=== PATIENT | male | born 1935 | race Caucasian/White ===

== ENCOUNTER 2019-03-06 11:29 | Emergency (ER) | payer MEDICARE ==
[~2019-03-06] VITALS: Ht 190.5 cm; Wt 85.3 kg
[~2019-03-06 11:29] MED LIST: CEPH500C PO; CPR500T PO; HYDR-3583 PO; HYDR-91 PO; PHEN200T27 PO
--- NOTE | 2019-03-06 11:55 | ED Neurological Problem ---
General Stated Complaint: DIZZY, SOB Source: patient, family Exam Limitations: other (patient's dementia) History of Present Illness Date Seen by Provider: Mar 06, 2019 Time Seen by Provider: 11:51 Initial Comments This 83-year-old white male presents with history of having episodes of being dizzy and lightheaded for the last several months. Episodes last about 30 minutes. Patient has no chest pain, palpitations, other neurologic symptoms, fever or chills, or precipitating etiology. The patient's states that the patient has been generally weak. The patient who suffers from dementia is unable to offer any truly helpful history. The patient's states that the episode today occurred as they were leaving [place]. It is now lasted for approximately 2 hours and this length of time has precipitated her presentation to the emergency department. The patient has had significant cardiac history with interventions including bypass surgery 5 years ago and a pacemaker. 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. Allergies and Home Medications Allergies Coded Allergies: No Known Drug Allergies (Unverified , 03/06/19) Home Medications Ciprofloxacin 500 Mg Tablet, 1 TAB PO BID, (Reported) Hydrocodone Bit/Acetaminophen 1 Each Tablet, 1-2 EA PO Q4HR PRN, (Reported) Phenazopyridine Hcl 200 Mg Tablet, 1 EACH PO TID PRN, (Reported) Patient Home Medication List Home Medication List Reviewed: Yes Review of Systems Review of Systems Constitutional: No chills, No fever Eyes: Denies Blurred Vision Ears, Nose, Mouth, Throat: denies ear discharge Respiratory: see HPI, short of breath Cardiovascular: see HPI; No chest pain Gastrointestinal: No abdominal pain, No nausea, No vomiting Genitourinary: No dysuria Musculoskeletal: No back pain Skin: No rash Psychiatric/Neurological: See HPI, Cognitive Dysfunction Endocrine: No Symptoms Reported Hematologic/Lymphatic: No Symptoms Reported Past Nyyxhah-Teiogv-Addfgm Hx Past Med/Social Hx: Reviewed Nursing Past Med/Soc Hx Immunizations Up To Date Date of Pneumonia Vaccine: Jul 31, 2009 Date of Influenza Vaccine: Aug 30, 2012 Past Medical History Reproductive Disorders: No Physical Exam Vital Signs Vital Signs - First Documented 03/06/19 11:33 Temp 96.0 Pulse 67 Resp 19 B/P (MAP) 167/84 (111) Pulse Ox 95 Capillary Refill : Height, Weight, BMI Height: '" Weight: lbs. oz. kg; BMI Method: General Appearance: WD/WN, no apparent distress HEENT: normal ENT inspection Neck: full range of motion, supple Respiratory: lungs clear, normal breath sounds Cardiovascular: regular rate, rhythm; No no murmur Gastrointestinal: normal bowel sounds, non tender, soft Back: normal inspection, no CVA tenderness Extremities: normal range of motion, non-tender, normal inspection Neurologic/Psychiatric: no motor/sensory deficits, alert; No facial droop Crainal Nerves: normal hearing, normal speech, PERRL, other (patient suffers from dementia and is unable offer helpful history.) Motor/Sensory: no motor deficit, no sensory deficit Skin: normal color, warm/dry Progress/Results/Core Measures Results/Orders Lab Results Laboratory Tests Test 03/06/19 12:14 03/06/19 12:37 Range/Units Glucometer 97 70-110 MG/DL White Blood Count 8.5 4.3-11.0 10^3/uL Red Blood Count 4.47 4.35-5.85 10^6/uL Hemoglobin 13.6 13.3-17.7 G/DL Hematocrit 41 40-54 % Mean Corpuscular Volume 92 80-99 FL Mean Corpuscular Hemoglobin 30 25-34 PG Mean Corpuscular Hemoglobin Concent 33 32-36 G/DL Red Cell Distribution Width 13.5 10.0-14.5 % Platelet Count 200 130-400 10^3/uL Mean Platelet Volume 9.6 7.4-10.4 FL Neutrophils (%) (Auto) 74 42-75 % Lymphocytes (%) (Auto) 14 12-44 % Monocytes (%) (Auto) 10 0-12 % Eosinophils (%) (Auto) 1 0-10 % Basophils (%) (Auto) 0 0-10 % Neutrophils # (Auto) 6.3 1.8-7.8 X 10^3 Lymphocytes # (Auto) 1.2 1.0-4.0 X 10^3 Monocytes # (Auto) 0.9 0.0-1.0 X 10^3 Eosinophils # (Auto) 0.1 0.0-0.3 10^3/uL Basophils # (Auto) 0.0 0.0-0.1 10^3/uL Prothrombin Time 13.7 12.2-14.7 SEC INR Comment 1.0 0.8-1.4 Activated Partial Thromboplast Time 31 24-35 SEC D-Dimer 0.50 H 0.00-0.49 UG/ML Sodium Level 139 135-145 MMOL/L Potassium Level 3.6 3.6-5.0 MMOL/L Chloride Level 100 98-107 MMOL/L Carbon Dioxide Level 17 L 21-32 MMOL/L Anion Gap 22 H 5-14 MMOL/L Blood Urea Nitrogen 18 7-18 MG/DL Creatinine 1.23 0.60-1.30 MG/DL Estimat Glomerular Filtration Rate 56 BUN/Creatinine Ratio 15 Glucose Level 113 H 70-105 MG/DL Calcium Level 9.2 8.5-10.1 MG/DL Corrected Calcium 8.8 8.5-10.1 MG/DL Magnesium Level 2.0 1.8-2.4 MG/DL Total Bilirubin 0.7 0.1-1.0 MG/DL Aspartate Amino Transf (AST/SGOT) 21 5-34 U/L Alanine Aminotransferase (ALT/SGPT) 17 0-55 U/L Alkaline Phosphatase 72 40-136 U/L Myoglobin 49.8 10.0-92.0 NG/ML Pro-B-Type Natriuretic Peptide 215.0 H <75.0 PG/ML Total Protein 7.1 6.4-8.2 GM/DL Albumin 4.5 3.2-4.5 GM/DL My Orders Orders - NICKI, RIYA Paulson MD Cbc With Automated Diff (03/06/19 11:49) Magnesium (03/06/19 11:49) Chest 1 View Ap/Pa Only (03/06/19 11:49) Ekg Tracing (03/06/19 11:49) Comprehensive Metabolic Panel (03/06/19 11:49) Myoglobin Serum (03/06/19 11:49) Protime With Inr (03/06/19 11:49) Partial Thromboplastin Time (03/06/19 11:49) O2 (03/06/19 11:49) Monitor-Rhythm Ecg Trace Only (03/06/19 11:49) Lipid Panel (03/07/19 06:00) Saline Lock/Iv-Start (03/06/19 11:49) Ct Head Wo (03/06/19 11:49) Probnp Fs (03/06/19 13:23) Fibrin Degradation Products (03/06/19 13:24) Vital Signs/I&O 03/06/19 11:33 Temp 96.0 Pulse 67 Resp 19 B/P (MAP) 167/84 (111) Pulse Ox 95 Progress Progress Note : Time: 14:06 Progress Note After extensive evaluation workup of the patient there was atelectasis on chest x-ray particularly of the left base suggestive of a possible infiltrate. The patient's BNP was mildly elevated at 200. His d-dimer was essentially normal at 0.5. His EKG demonstrated a pacemaker that was functioning at a rate of 60. During the patient's evaluation emergency department he had an episode of nausea and vomiting when he went to the bathroom. His vital signs remain unchanged. The patient's episode of feeling lightheaded and dizzy resolved while he was in the emergency department. I visited at length with patient and his concerning the episodes of dizziness and weakness. I have no clear explanation at this time. I want him to follow up closely with his primary care physician in the next 48 hours. I encouraged the patient to return to the emergency department if any further problems or questions. Departure Impression Primary Impression: Episodic lightheadedness Disposition: 01 HOME, SELF-CARE Condition: Improved Departure-Patient Inst. Decision time for Depature: 14:10 Referrals: IRLANDA RITTER DO (PCP) Primary Care Physician Patient Instructions: Dizziness, Nonvertigo, (DC) Add. Discharge Instructions: Follow-up closely with Dr. Meyers on Thursday or Thursday. Rest at home today. Return if you have any further episodes of lightheadedness and dizziness. RIYA CACERES MD Mar 06, 2019 11:55
[2019-03-06] MEDS ORDERED: RIVA4.5C5 (12:05)
[2019-03-06] MEDS ORDERED: ATOR10TA66 (12:05)
[2019-03-06] MEDS ORDERED: MEMA10TA22 (12:05)
[2019-03-06] MEDS ORDERED: DONE10TA41 (12:05)
--- NOTE | 2019-03-06 12:30 | Diagnostic Imaging Report ---
PROCEDURE: CT head without contrast. TECHNIQUE: Multiple contiguous axial images were obtained through the brain without the use of intravenous contrast. Auto Exposure Controls were utilized during the CT exam to meet ALARA standards for radiation dose reduction. INDICATION: Dizziness. COMPARISON: None available. FINDINGS: No hyperdense hemorrhage or space-occupying mass. No hydrocephalus or midline shift. Global atrophy is present. Periventricular white matter hypoattenuation is most compatible with chronic microvascular ischemic disease. No acute skull fracture. Chronic mucosal thickening in the right maxillary sinus. Other paranasal sinuses are clear. Bilateral lens surgery has been performed in the globes. IMPRESSION: No acute intracranial process by CT. Dictated by: Dictated on workstation # [id number]
--- NOTE | 2019-03-06 12:44 | Diagnostic Imaging Report ---
EXAMINATION: Portable erect AP chest at 1206h. INDICATION: Shortness of breath There are no prior studies available for comparison. Heart size is within normal limits. There are sternotomy wires and surgical clips as well as a left-sided pacemaker. There are a few coarse interstitial densities in the left lung base. I suspect that these are chronic in nature as opposed to mild acute pneumonia/atelectasis. If previous studies are available they would be helpful for comparison. There is also blunting of the left costophrenic angle. This may secondary to pleural thickening as opposed to a small effusion. Again comparison to previous exams would be helpful. The left upper lung and right lung are generally clear. The mediastinum is not widened. The osseous structures are intact. IMPRESSION: 1. The coarse interstitial densities in the left lung base and the blunted appearance on left costophrenic angle may well be chronic in nature. The possibility that there is an element of mild acute pneumonia/atelectasis and a small amount of fluid in this area should still be considered. Unless previous exams are available for comparison, then a followup chest exam would be recommended. 2. There is no acute cardiopulmonary abnormality noted otherwise. Dictated by: Dictated on workstation # [id number]
[2019-03-06 12:45] LABS: HEMATOCRIT 41 % (40-54); HEMOGLOBIN 13.6 G/DL (13.3-17.7); MEAN CORPUSCULAR HEMOGLOBIN 30 PG (25-34); MEAN CORPUSCULAR VOLUME 92 FL (80-99); WHITE BLOOD COUNT 8.5 10^3/uL (4.3-11.0)
[2019-03-06 12:46] LABS: BASOPHILS % (AUTO) 0 % (0-10); EOSINOPHILS # (AUTO) 0.1 10^3/uL (0.0-0.3); EOSINOPHILS % (AUTO) 1 % (0-10); LYMPHOCYTES # (AUTO) 1.2 X 10^3 (1.0-4.0); LYMPHOCYTES % (AUTO) 14 % (12-44); MEAN CORPUSCULAR HGB CONC 33 G/DL (32-36); MEAN PLATELET VOLUME 9.6 FL (7.4-10.4); MONOCYTES # (AUTO) 0.9 X 10^3 (0.0-1.0); MONOCYTES % (AUTO) 10 % (0-12); NEUTROPHILS # (AUTO) 6.3 X 10^3 (1.8-7.8); NEUTROPHILS % (AUTO) 74 % (42-75); PLATELET COUNT 200 10^3/uL (130-400); RED CELL DISTRIBUTION WIDTH 13.5 % (10.0-14.5)
--- NOTE | 2019-03-06 12:56 | NUR ---
Andriy began vomiting in bathroom. Was taken back to room in wheelchair. Denies continued nausea. Vitals taken, stable. Notified Dr Herrera.
[2019-03-06 12:59] LABS: PROTHROMBIN TIME PATIENT 13.7 SEC (12.2-14.7)
[2019-03-06 13:19] LABS: BILIRUBIN,TOTAL 0.7 MG/DL (0.1-1.0); CALCIUM 9.2 MG/DL (8.5-10.1); CREATININE SERUM 1.23 MG/DL (0.60-1.30); POTASSIUM 3.6 MMOL/L (3.6-5.0)
[2019-03-06 13:20] LABS: ALBUMIN 4.5 GM/DL (3.2-4.5); TOTAL PROTEIN 7.1 GM/DL (6.4-8.2)
[2019-03-06 14:25] VITALS: BP 145/56
== END 2019-03-06 14:26 | disposition home or self-care (01) ==
LOC: EDUNIT# 11:29 → ER FS 11:30
DX: R42 Dizziness and giddiness (principal); F03.90 Unspecified dementia, unspecified severity, without behavioral disturbance, psychotic disturbance, mood disturbance, and anxiety; Z95.0 Presence of cardiac pacemaker; Z98.61 Coronary angioplasty status
CPT/HCPCS: 36415; 70450; 71045; 80053; 82962; 83735; 83874; 83880; 85025; 85379; 85610; 85730; 93005; 93041

== ENCOUNTER 2019-04-11 07:41 | Emergency (ER) | payer MEDICARE, BC ==
[~2019-04-11] VITALS: Ht 193 cm; Wt 86.2 kg
[~2019-04-11 07:41] MED LIST changes: +ATOR10TA66; +DONE10TA41; +MEMA10TA22; +RIVA4.5C5
--- NOTE | 2019-04-11 08:14 | ED Cough/URI ---
General Chief Complaint: Cough/Cold/Flu Symptoms Stated Complaint: COUGH Source: patient, family, RN notes reviewed Exam Limitations: no limitations History of Present Illness Date Seen by Provider: April 11, 2019 Time Seen by Provider: 08:09 Allergies and Home Medications Allergies Coded Allergies: No Known Drug Allergies (Unverified , 03/06/19) Home Medications Ciprofloxacin 500 Mg Tablet, 1 TAB PO BID, (Reported) Hydrocodone Bit/Acetaminophen 1 Each Tablet, 1-2 EA PO Q4HR PRN, (Reported) Phenazopyridine Hcl 200 Mg Tablet, 1 EACH PO TID PRN, (Reported) Past Aehpslg-Jjcpws-Hovlnh Hx Patient Social History 2nd Hand Smoke Exposure: No Immunizations Up To Date Date of Pneumonia Vaccine: Jul 31, 2009 Date of Influenza Vaccine: Aug 30, 2012 Past Medical History CABG, Orthopedic, Pacemaker Respiratory: No Cardiac: Yes (3 vessel bypass surgery) Heart Attack, High Cholesterol Neurological: No Reproductive Disorders: No Sexually Transmitted Disease: No Genitourinary: Yes Prostate Problems Gastrointestinal: No Musculoskeletal: No Endocrine: No Prostate What Type of Treatment Did You: Surgical Intervention Blood Disorders: No Physical Exam Vital Signs - First Documented 04/11/19 07:55 Temp 97.5 Pulse 81 Resp 20 B/P (MAP) 144/92 (109) Pulse Ox 96 O2 Delivery Room Air Capillary Refill : Height: 6'3.00" Weight: 188lbs. oz. 85.449643sm; BMI Method:Stated Progress/Results/Core Measures Suspected Sepsis SIRS Temperature: Pulse: Respiratory Rate: Laboratory Tests 04/11/19 08:33: White Blood Count 6.7 Blood Pressure / Mean: Laboratory Tests 04/11/19 08:33: Creatinine 1.34H, Platelet Count 251, Total Bilirubin 0.7 Results/Orders Lab Results Laboratory Tests Test 04/11/19 08:33 Range/Units White Blood Count 6.7 4.3-11.0 10^3/uL Red Blood Count 4.38 4.35-5.85 10^6/uL Hemoglobin 13.3 13.3-17.7 G/DL Hematocrit 40 40-54 % Mean Corpuscular Volume 91 80-99 FL Mean Corpuscular Hemoglobin 30 25-34 PG Mean Corpuscular Hemoglobin Concent 33 32-36 G/DL Red Cell Distribution Width 13.3 10.0-14.5 % Platelet Count 251 130-400 10^3/uL Mean Platelet Volume 9.4 7.4-10.4 FL Neutrophils (%) (Auto) 70 42-75 % Lymphocytes (%) (Auto) 17 12-44 % Monocytes (%) (Auto) 10 0-12 % Eosinophils (%) (Auto) 3 0-10 % Basophils (%) (Auto) 0 0-10 % Neutrophils # (Auto) 4.7 1.8-7.8 X 10^3 Lymphocytes # (Auto) 1.2 1.0-4.0 X 10^3 Monocytes # (Auto) 0.6 0.0-1.0 X 10^3 Eosinophils # (Auto) 0.2 0.0-0.3 10^3/uL Basophils # (Auto) 0.0 0.0-0.1 10^3/uL Sodium Level 139 135-145 MMOL/L Potassium Level 4.0 3.6-5.0 MMOL/L Chloride Level 101 98-107 MMOL/L Carbon Dioxide Level 22 21-32 MMOL/L Anion Gap 16 H 5-14 MMOL/L Blood Urea Nitrogen 15 7-18 MG/DL Creatinine 1.34 H 0.60-1.30 MG/DL Estimat Glomerular Filtration Rate 51 BUN/Creatinine Ratio 11 Glucose Level 96 70-105 MG/DL Calcium Level 9.1 8.5-10.1 MG/DL Corrected Calcium 9.0 8.5-10.1 MG/DL Magnesium Level 2.1 1.8-2.4 MG/DL Total Bilirubin 0.7 0.1-1.0 MG/DL Aspartate Amino Transf (AST/SGOT) 23 5-34 U/L Alanine Aminotransferase (ALT/SGPT) 21 0-55 U/L Alkaline Phosphatase 73 40-136 U/L Pro-B-Type Natriuretic Peptide 604.7 H <75.0 PG/ML Total Protein 6.8 6.4-8.2 GM/DL Albumin 4.1 3.2-4.5 GM/DL My Orders Orders - ALMAZ CM DO Cbc With Automated Diff (04/11/19 08:17) Comprehensive Metabolic Panel (04/11/19 08:17) Magnesium (04/11/19 08:17) Probnp Fs (04/11/19 08:17) Chest Pa/Lat (2 View) (04/11/19 08:17) Vital Signs/I&O 04/11/19 04/11/19 07:55 07:55 Temp 97.5 Pulse 81 Resp 20 B/P (MAP) 144/92 (109) Pulse Ox 96 O2 Delivery Room Air Room Air Capillary Refill : Departure Impression Primary Impression: Chronic cough Additional Impressions: Elevated brain natriuretic peptide (BNP) level CHF (congestive heart failure) Disposition: 01 HOME, SELF-CARE Condition: Stable Departure-Patient Inst. Decision time for Depature: 09:39 Referrals: IRLANDA RITTER DO (PCP/Family) Primary Care Physician Patient Instructions: Heart Failure, Adult (DC) Add. Discharge Instructions: All discharge instructions reviewed with patient and/or family. Voiced understanding. RECOMMEND FOLLOWING UP WITH DR. RITTER, OR YOUR MAINTENANCE TECHNICIAN REGARDING YOUR ELEVATED BNP. Scripts Furosemide (Lasix) 20 Mg Tablet 20 MG PO DAILY, #30 TAB 0 Refills Prov: ALMAZ CM DO 04/11/19 ALMAZ CM DO April 11, 2019 08:14
--- OUTSIDE RECORDS SUMMARY | 2019-04-11 08:37 | XMS REPORT | Continuity of Care Document ---
Author Organization Unknown Address Unknown Allergies There is no data. Medications There is no data. Problems There is no data. Procedures There is no data. Results There is no data. Encounters ACCT No. Visit Date/Time Discharge Status Pt. Type Provider Facility Loc./Unit Complaint [id number] 04/01/2019 08:10:00 04/01/2019 23:59:59 CLS Outpatient [facility]
--- NOTE | 2019-04-11 08:45 | Diagnostic Imaging Report ---
INDICATION: Cough and congestion as well as sore throat. TIME OF EXAM: 8:08 AM Correlation is made with prior study from 03/06/2019. FINDINGS: Changes of median sternotomy are noted. Cardiac pacemaker remains in place. The lungs are clear. No infiltrates are detected. No effusion or pneumothorax is identified. There is some hyperinflation consistent with COPD. IMPRESSION: No acute cardiopulmonary process is detected. Dictated by: Dictated on workstation # [id number]
[2019-04-11 09:09] LABS: HEMOGLOBIN 13.3 G/DL (13.3-17.7); MEAN CORPUSCULAR HEMOGLOBIN 30 PG (25-34); WHITE BLOOD COUNT 6.7 10^3/uL (4.3-11.0)
[2019-04-11 09:10] LABS: BASOPHILS % (AUTO) 0 % (0-10); EOSINOPHILS # (AUTO) 0.2 10^3/uL (0.0-0.3); EOSINOPHILS % (AUTO) 3 % (0-10); HEMATOCRIT 40 % (40-54); LYMPHOCYTES # (AUTO) 1.2 X 10^3 (1.0-4.0); LYMPHOCYTES % (AUTO) 17 % (12-44); MEAN CORPUSCULAR HGB CONC 33 G/DL (32-36); MEAN CORPUSCULAR VOLUME 91 FL (80-99); MEAN PLATELET VOLUME 9.4 FL (7.4-10.4); MONOCYTES # (AUTO) 0.6 X 10^3 (0.0-1.0); MONOCYTES % (AUTO) 10 % (0-12); NEUTROPHILS # (AUTO) 4.7 X 10^3 (1.8-7.8); NEUTROPHILS % (AUTO) 70 % (42-75); PLATELET COUNT 251 10^3/uL (130-400); RED CELL DISTRIBUTION WIDTH 13.3 % (10.0-14.5)
[2019-04-11 09:14] LABS: BILIRUBIN,TOTAL 0.7 MG/DL (0.1-1.0); CALCIUM 9.1 MG/DL (8.5-10.1); CREATININE SERUM 1.34 MG/DL (0.60-1.30); MAGNESIUM 2.1 MG/DL (1.8-2.4)
[2019-04-11 09:15] LABS: ALBUMIN 4.1 GM/DL (3.2-4.5); TOTAL PROTEIN 6.8 GM/DL (6.4-8.2)
[2019-04-11] MEDS ORDERED: FURO-125 PO (09:43)
[2019-04-11 09:56] VITALS: BP 135/66
== END 2019-04-11 09:54 | disposition home or self-care (01) ==
LOC: EDUNIT# 07:41 → ER FS 07:42
DX: R05 Cough (principal); I50.9 Heart failure, unspecified; R79.89 Other specified abnormal findings of blood chemistry; I25.2 Old myocardial infarction; E78.00 Pure hypercholesterolemia, unspecified; Z98.84 Bariatric surgery status; Z95.1 Presence of aortocoronary bypass graft; Z95.0 Presence of cardiac pacemaker
CPT/HCPCS: 36415; 71046; 80053; 83735; 83880; 85025

== ENCOUNTER → 2019-05-03 | Outpatient (CLI) | payer MEDICARE, BC ==
[~2019-05-03] MED LIST changes: +FURO-125 PO
--- NOTE | 2019-05-03 19:15 | Diagnostic Imaging Report ---
EXAMINATION: Right foot series. INDICATION: Chronic right foot pain. COMPARISON: Comparison is made with the previous study from November 02, 2011. FINDINGS: There are prior apparent suture anchors or cerclage wire within the proximal phalanx of the right great toe. Fracture at that level has healed. There has been previous pin fixation of the first metatarsal that may relate to a prior osteotomy for bunionectomy. There are no findings of a new or acute fracture but there are advanced arthritic changes present within the mid and hindfoot. There is a degenerative calcaneal spur. Ankle alignment is unremarkable. IMPRESSION: 1. 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 There are no findings of an acute fracture, dislocation or malalignment. Dictated by: Dictated on workstation # [id number]
== END ==
LOC: RAD FS 13:49
PROVIDERS: ATTEND Nurse Practitioner
DX: S99.921A Unspecified injury of right foot, initial encounter (principal); M19.071 Primary osteoarthritis, right ankle and foot; Z98.890 Other specified postprocedural states; Z87.81 Personal history of (healed) traumatic fracture
CPT/HCPCS: 73630

== ENCOUNTER 2019-10-27 23:29 | Emergency (ER) | payer MEDICARE, BC ==
[~2019-10-27] VITALS: Ht 188 cm; Wt 86.4 kg
[2019-10-27 23:42] VITALS: BP 117/68
[2019-10-28 00:02] LABS: HEMATOCRIT 39 % (40-54); MEAN CORPUSCULAR HEMOGLOBIN 31 PG (25-34); MEAN CORPUSCULAR HGB CONC 33 G/DL (32-36); MEAN CORPUSCULAR VOLUME 93 FL (80-99); WHITE BLOOD COUNT 10.2 10^3/uL (4.3-11.0)
[2019-10-28 00:03] LABS: BASOPHILS % (AUTO) 0 % (0-10); EOSINOPHILS # (AUTO) 0.1 10^3/uL (0.0-0.3); EOSINOPHILS % (AUTO) 1 % (0-10); LYMPHOCYTES # (AUTO) 1.4 X 10^3 (1.0-4.0); LYMPHOCYTES % (AUTO) 13 % (12-44); MEAN PLATELET VOLUME 9.2 FL (7.4-10.4); MONOCYTES # (AUTO) 1.1 X 10^3 (0.0-1.0); MONOCYTES % (AUTO) 11 % (0-12); NEUTROPHILS # (AUTO) 7.5 X 10^3 (1.8-7.8); NEUTROPHILS % (AUTO) 74 % (42-75); PLATELET COUNT 207 10^3/uL (130-400); RED CELL DISTRIBUTION WIDTH 13.4 % (10.0-14.5)
[2019-10-28 00:22] LABS: BUN/CREATININE RATIO 15; CARBON DIOXIDE 28 MMOL/L (21-32); CHLORIDE 100 MMOL/L (98-107); CREATININE SERUM 1.44 MG/DL (0.60-1.30); GFR ESTIMATED 47; POTASSIUM 3.6 MMOL/L (3.6-5.0); SODIUM 140 MMOL/L (135-145)
[2019-10-28 00:23] LABS: ALANINE AMINOTRANSFERASE 21 U/L (0-55); ALBUMIN 4.4 GM/DL (3.2-4.5); ALKALINE PHOSPHATASE 81 U/L (40-136); BILIRUBIN,TOTAL 0.3 MG/DL (0.1-1.0); CALCIUM 8.8 MG/DL (8.5-10.1); GLUCOSE 121 MG/DL (70-105); TOTAL PROTEIN 6.8 GM/DL (6.4-8.2)
--- NOTE | 2019-10-28 06:05 | ED Respiratory ---
General Chief Complaint: Respiratory Problems Stated Complaint: SOB Nursing Triage Note: PT AMBULATE TO ROOM FS05 WITH C/O SOB STARTING THIS MORNING. PT REPORTS STERNAL CHEST PAIN STARTING THIS EVENING. Source: patient Exam Limitations: no limitations History of Present Illness Date Seen by Provider: Oct 28, 2019 Time Seen by Provider: 22:00 Initial Comments Patient is a 84-year-old male with history of CAD, CABG,CHF pacemaker placement who presents with hiccups, chest pain and shortness of breath. Symptom onset was yesterday afternoon. Patient has had intermittent headache which are currently resolved. He reported epigastric pain without tenderness lasting approximately 45 minutes. He just denies chest pain chest tightness, nausea or sweats. Reported feeling short of breath upon going to bed prompting him to come to the ED for evaluation. Shortness of breath is resolved. No fever chills, sweats, cough. No leg pain or swelling. Patient's spouse did give patient an extra dose of evening diuretic prior to ED arrival. Timing/Duration: just prior to arrival Severity: mild Prior Episodes/Possible Cause: no prior episodes Modifying Factors: Improves With Lying Down, Improves With Other (hiccups) Associated Symptoms: dizziness, shortness of breath Allergies and Home Medications Allergies Coded Allergies: No Known Drug Allergies (Unverified , 03/06/19) Home Medications Ciprofloxacin 500 Mg Tablet, 1 TAB PO BID, (Reported) Furosemide 20 Mg Tablet, 20 MG PO DAILY Prescribed by: ALMAZ CM on 04/11/19 0943 Hydrocodone Bit/Acetaminophen 1 Each Tablet, 1-2 EA PO Q4HR PRN, (Reported) Phenazopyridine Hcl 200 Mg Tablet, 1 EACH PO TID PRN, (Reported) Patient Home Medication List Home Medication List Reviewed: Yes Review of Systems Review of Systems Constitutional: see HPI EENTM: see HPI Respiratory: see HPI Cardiovascular: no symptoms reported Gastrointestinal: no symptoms reported Genitourinary: see HPI Musculoskeletal: see HPI Skin: see HPI Psychiatric/Neurological: See HPI Hematologic/Lymphatic: See HPI Immunological/Allergic: see HPI Past Fabgwyd-Tiyrds-Sfgdzk Hx Past Med/Social Hx: Reviewed Nursing Past Med/Soc Hx Patient Social History Alcohol Use: Denies Use Recreational Drug Use: No Smoking Status: Never a Smoker 2nd Hand Smoke Exposure: No Recent Foreign Travel: No Contact w/Someone Who Travel: No Recent Infectious Disease Expo: No Recent Hopitalizations: No Physical Abuse: No Sexual Abuse: No Mistreated: No Fear: No Immunizations Up To Date Date of Pneumonia Vaccine: Jul 31, 2009 Date of Influenza Vaccine: Aug 30, 2012 Seasonal Allergies Seasonal Allergies: No Past Medical History Surgeries: Yes Cardiac, CABG Respiratory: No Cardiac: No Heart Attack, High Cholesterol Neurological: Yes Dementia Reproductive Disorders: No Sexually Transmitted Disease: No Genitourinary: No Prostate Problems Gastrointestinal: No Musculoskeletal: No Endocrine: No HEENT: No Cancer: No Prostate What Type of Treatment Did You: Surgical Intervention Psychosocial: No Integumentary: No Blood Disorders: No Physical Exam Vital Signs - First Documented 10/27/19 23:42 Temp 37.1 Pulse 70 B/P (MAP) 117/68 (84) O2 Delivery Room Air Capillary Refill : Less Than 3 Seconds Height: 6'4.00" Weight: 190lbs. oz. 86.348254yj; 24.00 BMI Method:Stated General Appearance: no apparent distress Eyes: Bilateral Eye Normal Inspection, Bilateral Eye PERRL HEENT: PERRL/EOMI Neck: non-tender, full range of motion, supple Respiratory: chest non-tender, lungs clear Cardiovascular: normal peripheral pulses, regular rate, rhythm Gastrointestinal: non tender, soft Extremities: normal range of motion, non-tender Neurologic/Psychiatric: ciso II-XII nml as tested, no motor/sensory deficits, alert, oriented x 3 Focused Exam Sepsis Stage: Ruled Out Respiratory: Chest Non Tender, Lungs Clear Cardiovascular: Regular Rate, Rhythm, Normal Peripheral Pulses Capillary Refill: NONE Progress/Results/Core Measures Suspected Sepsis Recent Fever Within 48 Hours: No Infection Criteria Present: None New/Unexplained Altered Menta: No Sepsis Screen: No Definite Risk SIRS Temperature: Pulse: 70 Respiratory Rate: Laboratory Tests 10/27/19 23:46: White Blood Count 10.2 Blood Pressure 117 /68 Mean: 84 Laboratory Tests 10/27/19 23:36: Creatinine 1.44H, Total Bilirubin 0.3 10/27/19 23:46: Platelet Count 207 Results/Orders Lab Results Laboratory Tests Test 10/27/19 23:36 10/27/19 23:46 10/28/19 01:30 Range/Units Sodium Level 140 135-145 MMOL/L Potassium Level 3.6 3.6-5.0 MMOL/L Chloride Level 100 98-107 MMOL/L Carbon Dioxide Level 28 21-32 MMOL/L Anion Gap 12 5-14 MMOL/L Blood Urea Nitrogen 21 H 7-18 MG/DL Creatinine 1.44 H 0.60-1.30 MG/DL Estimat Glomerular Filtration Rate 47 BUN/Creatinine Ratio 15 Glucose Level 121 H 70-105 MG/DL Calcium Level 8.8 8.5-10.1 MG/DL Corrected Calcium 8.5 8.5-10.1 MG/DL Total Bilirubin 0.3 0.1-1.0 MG/DL Aspartate Amino Transf (AST/SGOT) 28 5-34 U/L Alanine Aminotransferase (ALT/SGPT) 21 0-55 U/L Alkaline Phosphatase 81 40-136 U/L Troponin I < 0.30 < 0.30 <0.30 NG/ML Pro-B-Type Natriuretic Peptide 147.3 H <75.0 PG/ML Total Protein 6.8 6.4-8.2 GM/DL Albumin 4.4 3.2-4.5 GM/DL White Blood Count 10.2 4.3-11.0 10^3/uL Red Blood Count 4.24 L 4.35-5.85 10^6/uL Hemoglobin 13.0 L 13.3-17.7 G/DL Hematocrit 39 L 40-54 % Mean Corpuscular Volume 93 80-99 FL Mean Corpuscular Hemoglobin 31 25-34 PG Mean Corpuscular Hemoglobin Concent 33 32-36 G/DL Red Cell Distribution Width 13.4 10.0-14.5 % Platelet Count 207 130-400 10^3/uL Mean Platelet Volume 9.2 7.4-10.4 FL Neutrophils (%) (Auto) 74 42-75 % Lymphocytes (%) (Auto) 13 12-44 % Monocytes (%) (Auto) 11 0-12 % Eosinophils (%) (Auto) 1 0-10 % Basophils (%) (Auto) 0 0-10 % Neutrophils # (Auto) 7.5 1.8-7.8 X 10^3 Lymphocytes # (Auto) 1.4 1.0-4.0 X 10^3 Monocytes # (Auto) 1.1 H 0.0-1.0 X 10^3 Eosinophils # (Auto) 0.1 0.0-0.3 10^3/uL Basophils # (Auto) 0.0 0.0-0.1 10^3/uL My Orders Orders - MAO PEPPER DO Cbc With Automated Diff (10/27/19 23:57) Comprehensive Metabolic Panel (10/27/19 23:57) Continuous Ekg Monitoring (10/27/19 23:57) Chest 1 View Ap/Pa Only (10/27/19 23:57) Probnp Fs (10/27/19 23:57) Troponin I Fs (10/27/19 23:57) Ekg Tracing (10/27/19 23:57) Troponin I Fs (10/28/19 01:29) Vital Signs/I&O 10/27/19 23:42 Temp 37.1 Pulse 70 B/P (MAP) 117/68 (84) O2 Delivery Room Air Capillary Refill : Less Than 3 Seconds Blood Pressure Mean: 84 POS Departure Communication (Admissions) EKG: reviewed, paced rhythm Symptoms resolved RIGHT OF WAY AGENT. Admission recommended offered but declined. Repeat trop I negative. Impression Primary Impression: Shortness of breath Additional Impression: Chest pain Disposition: HOME, SELF-CARE Condition: Improved Departure-Patient Inst. Add. Discharge Instructions: You were evaluated in the ED for chest pain and shortness of breath. EKG, lab and imaging were performed and the results were nondiagnostic. The cause of your symptoms have not been determined. Please continue home medications and take an extra dose of Lasix in the morning. Follow-up with your PCP and/or studio camera operator next week for reevaluation. Return to the ED if new or worsening symptoms. All discharge instructions reviewed with patient and/or family. Voiced understanding. MAO PEPPER DO Oct 28, 2019 06:05 POS
--- NOTE | 2019-10-28 06:31 | Diagnostic Imaging Report ---
INDICATION: Chest pain. COMPARISON: 04/11/2019. FINDINGS: Single view of the chest demonstrates clear lungs bilaterally. The heart is normal. There is no pneumothorax. Osseous structures are normal. Sternal wires are midline. Pacemaker is in good position. IMPRESSION: Negative chest. Dictated by: Dictated on workstation # [id number]
== END 2019-10-28 02:27 | disposition home or self-care (01) ==
LOC: EDUNIT# 23:29 → ER FS 23:31
DX: R06.02 Shortness of breath (principal); R07.9 Chest pain, unspecified; I25.10 Atherosclerotic heart disease of native coronary artery without angina pectoris; I50.9 Heart failure, unspecified; E78.00 Pure hypercholesterolemia, unspecified; I25.2 Old myocardial infarction; F03.90 Unspecified dementia, unspecified severity, without behavioral disturbance, psychotic disturbance, mood disturbance, and anxiety; Z85.46 Personal history of malignant neoplasm of prostate; Z95.1 Presence of aortocoronary bypass graft; Z95.0 Presence of cardiac pacemaker
CPT/HCPCS: 36415; 71045; 80053; 83880; 84484; 85025; 93005

== ENCOUNTER → 2020-03-05 | Outpatient (CLI) | payer MEDICARE, BC ==
[~2020-03-05] MED LIST changes: -MEMA10TA22; +MEMA10TA57
--- NOTE | 2020-03-05 10:32 | Diagnostic Imaging Report ---
INDICATION: Right knee pain. Time of exam 10:17 AM 3 views right knee were obtained. There is tricompartmental degenerative change with joint space narrowing and marginal spurring, greatest involving the medial compartment. There is chondrocalcinosis of the medial and lateral compartments. There is spurring of the tibial spines. No fracture, dislocation or effusion is seen. 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 No acute bony abnormality is detected. Dictated by: Dictated on workstation # [id number]
== END ==
LOC: RAD FS 10:07
PROVIDERS: ATTEND Nurse Practitioner
DX: M17.11 Unilateral primary osteoarthritis, right knee (principal)
CPT/HCPCS: 73562

== ENCOUNTER 2020-08-28 03:10 | Emergency (ER) | payer MEDICARE, BC ==
[~2020-08-28 03:10] MED LIST changes: +RIVA4.5C13; -RIVA4.5C5
[2020-08-28] MEDS ORDERED: ORPHENADRINE 60 MG/2 ML (NORFLEX) AMP (ED ONLY) IM STA (03:36)
[2020-08-28] MEDS ORDERED: diphenhydrAMINE 25 MG TAB (BENADRYL) PO ONE ×2 (03:41→03:45)
--- NOTE | 2020-08-28 03:43 | ED Upper Extremity ---
General Chief Complaint: Upper Extremity Stated Complaint: LEFT SHOULDER PAIN Nursing Triage Note: Pt brought in by ems complaining of left shoulder pain. Nursing Sepsis Screen: No Definite Risk Source: patient, family, RN notes reviewed, EMS notes reviewed, old records Exam Limitations: no limitations History of Present Illness Date Seen by Provider: Aug 28, 2020 Time Seen by Provider: 03:25 Initial Comments This patient is an 85-year-old male that presents to the emergency department with complaint of upper back pain. Muscular pain. Patient is bowel states patient has had this pain seems like nightly for the past couple nights. Patient awake up in the middle back complaining of upper back pain and muscular pain free tender to light touch. states in the morning to wake up and be just fi ne and had no complaints. Patient has a long history of dementia and the states it seems it is advancing pretty quickly. Patient was brought in by EMS for evaluation. states that she thinks this is just something to do with back pain. Patient had an EKG upon arrival to the emergency department show that it was just a paced rhythm but nondiagnostic no ST elevation. Patient does have a cardiac history and history of bypass. I did discuss at length with patient and about issues going the patient sits up he has no pain. Patient is moving around freely does not have any complaints but then when he states he lays back he's fine. in a certain positioning touching in his musculature along the trapezius muscles patient complains of pain. I did discuss at length with the patient's spouse I did offer a full medical screening exam including cardiac evaluation. The patient's declines states that she does not believe is cardiac states that he's been having this issue seems like nightly at night and during the daytime he has no complaints. She requested the patient be given something for pain comfort and discharged home states they will follow-up with primary care physician in the next couple days soothers something they can help. She is concerned about his advanced dementia. She would like to have something tonight to help him sleep. We did discuss at length with patient about options with spouse. We'll give the patient an IM injection of Norflex 30 mg discharged per her request. Onset: this evening Pain/Injury Location: bilateral shoulder Modifying Factors: Improves With Movement Allergies and Home Medications Allergies Coded Allergies: No Known Drug Allergies (Unverified , 03/06/19) Home Medications Ciprofloxacin 500 Mg Tablet, 1 TAB PO BID, (Reported) Furosemide 20 Mg Tablet, 20 MG PO DAILY Prescribed by: ALMAZ CM on 04/11/19 0943 Hydrocodone Bit/Acetaminophen 1 Each Tablet, 1-2 EA PO Q4HR PRN, (Reported) Phenazopyridine Hcl 200 Mg Tablet, 1 EACH PO TID PRN, (Reported) Patient Home Medication List Home Medication List Reviewed: Yes Review of Systems Constitutional: No no symptoms reported, No see HPI, No chills, No diaphoresis, No dizziness, No fever, No malaise, No weakness, No weight gain, No weight loss, No other EENTM: No see HPI, No no symptoms reported, No ear discharge, No hearing loss, No ear pain, No blurred vision, No double vision, No eye pain, No tearing, No vision loss, No dental problems, No hoarseness, No mouth pain, No mouth swelling, No epistaxis, No nose congestion, No nose pain, No throat pain, No throat swelling, No other Respiratory: No no symptoms reported, No see HPI, No cough, No dyspnea on exertion, No hemoptysis, No orthopnea, No phlegm, No short of breath, No stridor, No wheezing, No other Cardiovascular: No no symptoms reported, No see HPI, No chest pain, No edema, No Hx of Intervention, No palpitations, No syncope, No vascular heart diseas, No other Gastrointestinal: No RUQ, No LUQ, No RLQ, No LLQ, No no symptoms reported, No see HPI, No abdominal pain, No constipation, No diarrhea, No dysphagia, No hematemesis, No heartburn, No jaundice, No loss of appetite, No melena, No nausea, No vomiting, No other Genitourinary: No no symptoms reported, No see HPI, No decreased output, No discharge, No dysuria, No frequency, No hematuria, No hesitancy, No incontinence, No nocturia, No pain, No other Musculoskeletal: No no symptoms reported; see HPI, back pain; No gout, No joint pain, No joint swelling, No muscle pain, No muscle stiffness, No muscle cramps, No muscle twitching, No muscle weakness, No neck pain, No other Skin: No no symptoms reported, No see HPI, No change in color, No change in hair/nails, No dryness, No hx of skin cancer, No lesions, No lumps, No pruritus, No rash, No other Psychiatric/Neurological: Denies No Symptoms Reported, Denies See HPI, Denies Anxiety, Denies Depressed, Denies Emotional Problems, Denies Headache, Denies Numbness, Denies Paresthesia, Denies Pre-Existing Deficit, Denies Seizure, Denies Tingling, Denies Tremors, Denies Weakness, Denies Other All Other Systems Reviewed Negative Unless Noted: Yes Past [id number] Hx Patient Social History Alcohol Use: Denies Use Recreational Drug Use: No Smoking Status: Never a Smoker 2nd Hand Smoke Exposure: No Recent Foreign Travel: No Contact w/Someone Who Travel: No Recent Infectious Disease Expo: No Recent Hopitalizations: No Physical Abuse: No Sexual Abuse: No Immunizations Up To Date Date of Pneumonia Vaccine: Jul 31, 2009 Date of Influenza Vaccine: Aug 30, 2012 Seasonal Allergies Seasonal Allergies: No Past Medical History Surgeries: Yes Cardiac, CABG, Pacemaker Respiratory: No Cardiac: No Heart Attack, High Cholesterol Neurological: Yes Dementia Reproductive Disorders: No Sexually Transmitted Disease: No Genitourinary: No Prostate Problems Gastrointestinal: No Musculoskeletal: No Endocrine: No HEENT: No Cancer: No Prostate What Type of Treatment Did You: Surgical Intervention Psychosocial: No Integumentary: No Blood Disorders: No Physical Exam Vital Signs Vital Signs - First Documented 08/28/20 03:13 Temp 36.9 Pulse 70 Resp 16 B/P (MAP) 138/62 (87) Pulse Ox 95 O2 Delivery Room Air Capillary Refill : Less Than 3 Seconds Height, Weight, BMI Height: 6'4.00" Weight: 190lbs. oz. 86.920113td; 24.00 BMI Method:Stated General Appearance: WD/WN, no apparent distress Neck: non-tender, full range of motion, supple, normal inspection Cardiovascular: normal peripheral pulses, regular rate, rhythm, no edema, no gallop, no JVD, no murmur Respiratory: chest non-tender, lungs clear, normal breath sounds, no respiratory distress, no accessory muscle use Gastrointestinal: normal bowel sounds, non tender, soft, no organomegaly, no pulsatile mass, abnormal bowel sounds Back: normal inspection, no CVA tenderness, no vertebral tenderness, vertebral tenderness (tenderness to light touch bilateral of her back. Appears to be musculoskeletal.) Neurologic/Psychiatric: disoriented x 3 (long history of advanced dementia.) Skin: normal color, warm/dry Progress/Results/Core Measures Results/Orders My Orders Orders - MIGNON ROSADO MD Orphenadrine Inj (Ed Only) (Norflex Inje (08/28/20 03:36) Vital Signs/I&O 08/28/20 03:13 Temp 36.9 Pulse 70 Resp 16 B/P (MAP) 138/62 (87) Pulse Ox 95 O2 Delivery Room Air Blood Pressure Mean: 87 Progress Progress Note : Time: 03:41 Progress Note Appears to be musculoskeletal pain. However I did offer full medical screening exam to rule out any cardiac event. Patient's has declined. She was is also musculoskeletal pain. Patient be given Norflex 30 mg IM in the emergency department along with 25 Benadryl. Patient will be discharged home per was request. Patient be given a prescription of Flexeril for the next couple days. Use heating pad as needed alternate with ice. Tylenol Motrin as a for pain. Take medications as prescribed. Follow-up with PCP in 2-3 days for any additional medications. Initial ECG Impression Date: Aug 28, 2020 Initial ECG Impression Time: 03:30 Initial ECG Rate: 69 Initial ECG Impression: Nonspecific Changes Comment Atrial paced rhythm heart rate 69 nondiagnostic EKG Departure Impression Primary Impression: Back pain Additional Impressions: Arthritis Dementia Disposition: 01 HOME, SELF-CARE Condition: Stable Departure-Patient Inst. Decision time for Depature: 03:45 Referrals: IRLANDA RITTER DO (PCP) Primary Care Physician Patient Instructions: Upper Back Pain (DC), Dementia (DC) Add. Discharge Instructions: Use heating pad as needed alternate with ice. Tylenol Motrin as a for pain. Take medications as prescribed. Follow-up with PCP in 2-3 days for any additional medications. The symptoms don't improve or worsen return to the emergency department as needed. All discharge instructions reviewed with patient and/or family. Voiced understanding. Scripts Cyclobenzaprine HCl (Cyclobenzaprine HCl) 10 Mg Tablet 10 MG PO Q8H PRN for SPASMS, #15 TAB 0 Refills Prov: MIGNON ROSADO MD 08/28/20 MIGNON ROSADO MD Aug 28, 2020 03:42
[2020-08-28] MEDS ORDERED: diphenhydrAMINE 12.5 MG/5 ML UDC (BENADRYL) ONE (03:45)
[2020-08-28] MEDS ORDERED: CYCL10TA9 PO (03:46)
[2020-08-28 03:58] VITALS: BP 138/62
[2020-08-28] MEDS ORDERED: diphenhydrAMINE 12.5 MG/5 ML UDC (BENADRYL) PO ONE (04:00)
== END 2020-08-28 03:59 | disposition home or self-care (01) ==
LOC: EDUNIT# 03:10 → ER FS 03:13
DX: M54.9 Dorsalgia, unspecified (principal); M19.90 Unspecified osteoarthritis, unspecified site; F03.90 Unspecified dementia, unspecified severity, without behavioral disturbance, psychotic disturbance, mood disturbance, and anxiety; Z85.46 Personal history of malignant neoplasm of prostate; Z95.0 Presence of cardiac pacemaker; Z95.1 Presence of aortocoronary bypass graft; I25.2 Old myocardial infarction
CPT/HCPCS: 93005